=== PATIENT | male | born 1975 | race American Indian/Alaskan Native ===

== ENCOUNTER 2016-04-06 22:04 | Emergency (ER) | payer MEDICARE ==
--- NOTE | 2016-04-07 02:24 | Ultrasound Report ---
FINAL REPORT PROCEDURE: US TESTICULAR DOPPLER COMP TECHNIQUE: Real-time may-scale and color flow Doppler sonography in multiple planes of the scrotum, testicles, and epididymes was performed. Velocity spectral waveform analysis Doppler imaging of the arterial inflow and venous outflow of the testicles was performed with image documentation. CPT 46461 and 93647 HISTORY: testicular/scrotal pain COMPARISON: No prior studies are available for comparison. FINDINGS: RIGHT TESTICLE: Size: 4 x 2.1 x 2.9 cm . Appearance: Normal size and echotexture . Arterial blood flow: Normal spectral waveforms, flow velocities and color flow images.. Venous blood flow: Normal spectral waveforms and color flow images. Right epididymis: Normal size and echotexture . Hydrocele: None . LEFT TESTICLE Size: 3.5 x 1.5 x 2.8 cm . Appearance: Overall echotexture is heterogeneous. There is peripheral and internal blood flow. However there is an area in the inferior portion of the testicle measuring 1.5 centimeters in diameter which is hypoechoic and avascular. This could be a focal area of edema or scarring possibly due to trauma or old infarction. Possibility of tumor is considered less likely but cannot be entirely excluded.. Arterial blood flow: Normal spectral waveforms, flow velocities and color flow images.. Venous blood flow: Normal spectral waveforms and color flow images. Leftepididymis: Normal size and echotexture . Hydrocele: None . IMPRESSION: Normal right testicle and epididymis. In the left testicle there is an area in the inferior portion of the testicle measuring 1.5 centimeters in diameter which is hypoechoic and avascular. This could be a focal area of edema or scarring possibly due to trauma or old infarction. Possibility of tumor is considered less likely but cannot be entirely excluded..
--- NOTE | 2016-04-07 02:28 | Emergency Department Report ---
HPI - General Chief Complaint: Urogenital-Male Time Seen by Provider: 04/07/16 02:13 - HPI HPI: Patient is a 41-year-old male who presents to ED complaining of scrotal pain radiates down his upper thighs 1 year. Patient states he went to urologist about a year ago and got prescribed some medication he cannot recall. Patient states his last visit to the urologist was about 6 months ago where he got some other medication that he cannot recall. Patient admits some difficulty urinating, no pain or burning with urination. He denies frequency or urgency. He denies fevers/chills/nausea/vomiting/ abdominal pain/pelvic pain/chest pain/shortness of breath ED Past Medical Hx - Past Medical History Previous Medical History?: Yes Hx Psychiatric Treatment: Yes (depression) Additional medical history: chronic knee, back, ankle pain - Surgical History Past Surgical History?: Yes Additional Surgical History: left knee surgery - Social History Smoking Status: Current Some Day Smoker Substance Use Type: None - Medications Home Medications: Home Medications Medication Instructions Recorded Confirmed Last Taken Type HYDROcodone/APAP 7.5-325 [[place] 1 each PO Q6HR PRN #25 tablet 11/02/13 Unknown Rx 7.5/325 mg] Doxycycline [Vibramycin CAP] 100 mg PO Q12HR #14 capsule 04/07/16 Unknown Rx HYDROcodone/APAP 5-325 [[place] 1 each PO Q6HR PRN #12 tablet 04/07/16 Unknown Rx 5-325 mg TAB] Ibuprofen [Motrin 600 MG tab] 600 mg PO Q8H PRN #60 tablet 04/07/16 Unknown Rx ED Review of Systems ROS: Stated complaint: PELVIC AND BACK PAIN Other details as noted in HPI Constitutional: denies: chills, fever Eyes: denies: eye pain, eye discharge, vision change ENT: denies: ear pain, throat pain Respiratory: denies: cough, shortness of breath, wheezing Cardiovascular: denies: chest pain, palpitations Endocrine: no symptoms reported Gastrointestinal: denies: abdominal pain, nausea, diarrhea Genitourinary: testicular pain. denies: urgency, dysuria, frequency, hematuria , discharge, testicular mass Musculoskeletal: denies: back pain, joint swelling, arthralgia Skin: denies: rash, lesions Neurological: denies: headache, weakness, numbness, paresthesias, confusion Psychiatric: denies: anxiety, depression Hematological/Lymphatic: denies: easy bleeding, easy bruising Physical Exam - Physical Exam Vital Signs: Vital Signs 04/06/16 04/07/16 23:46 01:08 Temperature 98.6 F 98.6 F Pulse Rate 75 75 Respiratory 18 18 Rate Blood Pressure 135/82 Blood Pressure 135/82 [Left] O2 Sat by Pulse 98 98 Oximetry Physical Exam: GENERAL: Alert and oriented x3, no apparent distress, Normal Gait, atraumatic. HEAD: Head is normocephalic and a-traumatic. EYES: Extra ocular muscles are intact. Pupils are equal, round, and reactive to light and accommodation. NOSE: Nose symetrical, Nontender,Nares appeared normal. MOUTH:Mouth is well hydrated and without lesions. Patent airways. NECK: Supple. Non edematous, No carotid bruits. No lymphadenopathy or thyromegaly. LUNGS: Symetrical with respiration, No wheezing, no rales or crackles, CTAB. HEART: S1, S2 present, regular rate and rhythm without murmur, no rubs, no gallops. ABDOMEN: No organomegaly was noted,Positive bowel sounds, soft, and non- distended. . Nontender to palpation on all Quadrants, NO CVA tenderness. UROGENITAL: No scrotal mass, Scrotum non tender to palpation bilaterally, no hernia, no scars or penile discharge. no inguinal tenderness bilat EXTREMITIES/MUSCULOSKELETAL: No cyanosis, clubbing, rash, lesions or edema. Full ROM bilaterally. UE Pulses 2+ bilaterally. LE and UE 5+ strength bilaterally NEUROLOGIC: No focal Deficit, Cranial nerves II through XII are grossly intact. No loss of sensation, PSYCHIATRIC: Mood is congruent with affect, denies suicidal or homicidal ideations. SKIN: Warm and dry, No lesions, No ulceration or induration present. ED Course Vital Signs 04/06/16 04/07/16 23:46 01:08 Temperature 98.6 F 98.6 F Pulse Rate 75 75 Respiratory 18 18 Rate Blood Pressure 135/82 Blood Pressure 135/82 [Left] O2 Sat by Pulse 98 98 Oximetry ED Medical Decision Making - Medical Decision Making 36-year-old male presents with dysuria ED course: Patient received some pain medication. Urinalysis ordered. Patient was able to give a full cup of urine sample with no difficulty. Scrotum ultrasound ordered. Ultrasound: No hydrocele, normal venous flow and arterial blood flow Normal right testicle, left testicle has area of hypoechoic 1.5 cm Possibly due to scarring or old infarction or tumor. Patient to follow up with urologist. Urinalysis shows few mucus, negative bacteria, no signs of infection Discussed with patient ultrasound findings and to follow-up with urologist as referred. Discussed the patient's symptoms worsen to return to ED. Discussed normal exam. Vital signs stable. Patient is in no acute respiratory distress. Critical care attestation.: If time is entered above; I have spent that time in minutes in the direct care of this critically ill patient, excluding procedure time. ED Disposition Clinical Impression: Dysuria Disposition: DISCHARGED TO HOME OR SELFCARE Is pt being admited?: No Does the pt Need Aspirin: No Condition: Stable Instructions: Dysuria (ED) Additional Instructions: Follow-up with the urologist. Symptoms worsen return to ED Prescriptions: Doxycycline [Vibramycin CAP] 100 mg PO Q12HR #14 capsule HYDROcodone/APAP 5-325 [[place] 5-325 mg TAB] 1 each PO Q6HR PRN #12 tablet PRN Reason: Pain Ibuprofen [Motrin 600 MG tab] 600 mg PO Q8H PRN #60 tablet PRN Reason: Pain Referrals: PRIMARY CARE, [Primary Care Provider] - 3-5 Days LAKSHMI GARNETT MD [Staff Physician] - 3-5 Days DODIE MORIN MD [Staff Physician] - 3-5 Days ADRYAN MONTES MD [Referring] - 3-5 Days MYLA MADERA MD [Referring] - 3-5 Days Forms: Work/School Release Form(ED) Time of Disposition: 03:10
[2016-04-07 02:43] VITALS: BP 136/80
[2016-04-07 02:58] LABS: Bilirubin,Urine NEG (Negative); Blood,Urine NEG (Negative); Ketones,Urine NEG (Negative); Leukocyte Esterase,Urine NEG (Negative); Mucus,Urine FEW /HPF; Nitrite,Urine NEG (Negative); Protein,Urine <15 mg/dL mg/dL (Negative); Urobilinogen,Urine < 2.0 mg/dL (<2.0); WBC,Urine < 1.0 /HPF (0.0-6.0)
== END 2016-04-07 03:26 | disposition home or self-care (01) ==
LOC: ED 22:04
DX: R30.0 Dysuria (principal); N50.82 Scrotal pain; F17.200 Nicotine dependence, unspecified, uncomplicated; F32.9 Major depressive disorder, single episode, unspecified; G89.29 Other chronic pain; Z98.890 Other specified postprocedural states; Z79.899 Other long term (current) drug therapy; Z79.1 Long term (current) use of non-steroidal anti-inflammatories (NSAID); Z79.2 Long term (current) use of antibiotics
CPT/HCPCS: 81001; 87086; 93975

== ENCOUNTER 2017-01-08 05:38 | Emergency (ER) | payer MEDICARE | END 2017-01-08 06:36 | disposition left against medical advice (07) | LOC: ED 05:38 | DX: M79.1 Myalgia (principal); Z53.21 Procedure and treatment not carried out due to patient leaving prior to being seen by health care provider ==

== ENCOUNTER 2017-01-08 07:36 | Emergency (ER) | payer MEDICARE ==
[2017-01-08 07:50] VITALS: BP 121/83
[2017-01-08 08:16] LABS: Eosinophils % (Auto) 1.9 % (0.0-4.3); Hematocrit 43.2 % (35.5-45.6); Hemoglobin 14.5 gm/dl (11.8-15.2); Mean Corpuscular HGB Conc 34 % (32-34); Mean Corpuscular Hemoglobin 29 pg (28-32); Mean Corpuscular Volume 85 fl (84-94); Platelet Count 180 K/mm3 (140-440); Red Blood Count 5.07 M/mm3 (3.65-5.03); Red Cell Distribution Width 14.8 % (13.2-15.2); White Blood Count 8.1 K/mm3 (4.5-11.0)
[2017-01-08 10:03] LABS: Anion Gap 20 mmol/L; BUN/Creatinine Ratio 8; Blood Urea Nitrogen 8 mg/dL (9-20); Calcium 9.5 mg/dL (8.4-10.2); Carbon Dioxide 25 mmol/L (22-30); Chloride 100.1 mmol/L (98-107); Glucose 71 mg/dL (75-100); Potassium 4.4 mmol/L (3.6-5.0); Sodium 141 mmol/L (137-145)
== END 2017-01-08 13:30 | disposition left against medical advice (07) ==
LOC: ED 07:36
DX: R10.9 Unspecified abdominal pain (principal); R07.9 Chest pain, unspecified; Z53.21 Procedure and treatment not carried out due to patient leaving prior to being seen by health care provider
CPT/HCPCS: 36415; 80048; 84484; 85025; 93005; 93010

== ENCOUNTER 2017-04-08 03:02 | Emergency (ER) | payer MEDICARE ==
[2017-04-08 03:22] VITALS: BP 145/95
[2017-04-08] MEDS ORDERED: ASPIRIN PO ONE (03:22)
[2017-04-08] MEDS ORDERED: ASPIRIN ONE (03:22)
[2017-04-08 03:34] LABS: Basophils % (Auto) 0.4 % (0.0-1.8); Eosinophils # (Auto) 0.1 K/mm3 (0.0-0.4); Eosinophils % (Auto) 1.8 % (0.0-4.3); Hematocrit 40.5 % (35.5-45.6); Hemoglobin 13.7 gm/dl (11.8-15.2); Lymphocytes # (Auto) 2.1 K/mm3 (1.2-5.4); Lymphocytes % (Auto) 30.7 % (13.4-35.0); Mean Corpuscular HGB Conc 34 % (32-34); Mean Corpuscular Hemoglobin 28 pg (28-32); Mean Corpuscular Volume 84 fl (84-94); Monocytes # (Auto) 0.4 K/mm3 (0.0-0.8); Monocytes % (Auto) 5.3 % (0.0-7.3); Platelet Count 187 K/mm3 (140-440); Red Blood Count 4.83 M/mm3 (3.65-5.03)
[2017-04-08 03:54] LABS: BUN/Creatinine Ratio 8; Blood Urea Nitrogen 8 mg/dL (9-20); Calcium 9.1 mg/dL (8.4-10.2); Hemolysis Index 1
== END 2017-04-08 03:25 | disposition left against medical advice (07) ==
LOC: ED 03:02
DX: M54.9 Dorsalgia, unspecified (principal); M25.569 Pain in unspecified knee; R07.9 Chest pain, unspecified; Z53.21 Procedure and treatment not carried out due to patient leaving prior to being seen by health care provider
CPT/HCPCS: 36415; 80048; 84484; 85025; 93005; 93010

== ENCOUNTER 2017-04-28 17:25 | Emergency (ER) | payer MEDICARE ==
--- NOTE | 2017-04-28 18:27 | Emergency Department Report ---
ED Psych HPI - General Stated Complaint: MH EVAL Time Seen by Provider: 04/28/17 18:23 Source: patient, police - History of Present Illness Initial Comments: 42-year-old male with history of schizoaffective here with 1013 for auditory hallucinations telling himself to harm himself and others, denies other c/o, no cp no abd pain, no neck pain, no fever, no focal neuro c/o, -: Gradual, days(s) Associated Psychiatric Symptoms: suicidal ideation, homicidal ideation, auditory hallucinations Quality: changing over time, getting worse Associated Symptoms: denies: confusion, headache, shortness of breath, nausea, vomiting, syncope, insomnia - Related Data Previous Rx's Medication Instructions Recorded Last Taken Type HYDROcodone/APAP 7.5-325 [[place] 1 each PO Q6HR PRN #25 tablet 11/02/13 Unknown Rx 7.5/325 mg] Doxycycline [Vibramycin CAP] 100 mg PO Q12HR #14 capsule 04/07/16 Unknown Rx HYDROcodone/APAP 5-325 [[place] 1 each PO Q6HR PRN #12 tablet 04/07/16 Unknown Rx 5-325 mg TAB] Ibuprofen [Motrin 600 MG tab] 600 mg PO Q8H PRN #60 tablet 04/07/16 Unknown Rx Allergies Allergy/AdvReac Type Severity Reaction Status Date / Time No Known Allergies Allergy Verified 11/02/13 03:36 ED Review of Systems ROS: Stated complaint: MH EVAL Other details as noted in HPI Comment: All other systems reviewed and negative Constitutional: denies: chills, diaphoresis, fever, malaise, weakness Respiratory: denies: shortness of breath, SOB with exertion, SOB at rest, stridor Cardiovascular: denies: edema, syncope, paroxysmal nocturnal dyspnea Gastrointestinal: denies: diarrhea, constipation, hematemesis, melena Musculoskeletal: denies: joint swelling, arthralgia, myalgia Neurological: denies: weakness, numbness, paresthesias, confusion, abnormal gait Psychiatric: auditory hallucinations, homicidal thoughts, suicidal thoughts ED Past Medical Hx - Past Medical History Hx Hypertension: Yes Hx Arthritis: Yes Hx Psychiatric Treatment: Yes (depression) Additional medical history: chronic knee, back, ankle pain - Surgical History Additional Surgical History: left knee surgery - Social History Smoking Status: Light Tobacco Smoker Substance Use Type: Alcohol - Medications Home Medications: Home Medications Medication Instructions Recorded Confirmed Last Taken Type HYDROcodone/APAP 7.5-325 [[place] 1 each PO Q6HR PRN #25 tablet 11/02/13 Unknown Rx 7.5/325 mg] Doxycycline [Vibramycin CAP] 100 mg PO Q12HR #14 capsule 04/07/16 Unknown Rx HYDROcodone/APAP 5-325 [[place] 1 each PO Q6HR PRN #12 tablet 04/07/16 Unknown Rx 5-325 mg TAB] Ibuprofen [Motrin 600 MG tab] 600 mg PO Q8H PRN #60 tablet 04/07/16 Unknown Rx ED Physical Exam - General General appearance: alert, in no apparent distress - Head Head exam: Present: atraumatic, normocephalic - Eye Eye exam: Present: PERRL, EOMI - ENT ENT exam: Present: normal exam, normal orophraynx - Neck Neck exam: Present: normal inspection. Absent: tenderness, meningismus - Respiratory Respiratory exam: Present: normal lung sounds bilaterally. Absent: respiratory distress, wheezes, rales, rhonchi, stridor, chest wall tenderness, accessory muscle use, decreased breath sounds, prolonged expiratory - Cardiovascular Cardiovascular Exam: Present: regular rate, normal heart sounds - GI/Abdominal GI/Abdominal exam: Present: soft. Absent: distended, tenderness, guarding, rebound, mass, bruit, pulsatile mass - Extremities Exam Extremities exam: Present: normal inspection, normal capillary refill. Absent: pedal edema, joint swelling, calf tenderness - Back Exam Back exam: Present: normal inspection. Absent: CVA tenderness (R), CVA tenderness (L), muscle spasm, paraspinal tenderness, vertebral tenderness - Neurological Exam Neurological exam: Present: alert, oriented X3, CN II-XII intact. Absent: motor sensory deficit - Psychiatric Psychiatric exam: Present: depressed, anxious, homicidal ideation, suicidal ideation - Skin Skin exam: Absent: cyanosis, diaphoretic, erythema, urticaria, vesicles, petechiae, pallor, abrasion, ecchymosis ED Course Vital Signs 04/28/17 04/28/17 17:45 18:29 Temperature 98.7 F 98.7 F Pulse Rate 64 64 Respiratory 18 18 Rate Blood Pressure 112/69 Blood Pressure 112/69 112/69 [Left] O2 Sat by Pulse 94 94 Oximetry ED Medical Decision Making - Lab Data Result diagrams: 04/28/17 18:40 04/28/17 18:40 - Medical Decision Making Patient was evaluated by psych he was worse on 1013 he will need further evaluation for his auditory hallucinations he was medically cleared and stable for psych admit Critical care attestation.: If time is entered above; I have spent that time in minutes in the direct care of this critically ill patient, excluding procedure time. ED Disposition Clinical Impression: Psychosis Disposition: [id number]/TX-65 PSY HOSP/PSY UNIT Is pt being admited?: No Condition: Stable Time of Disposition: 00:19
[2017-04-28 18:54] LABS: Basophils % (Auto) 0.6 % (0.0-1.8); Eosinophils # (Auto) 0.1 K/mm3 (0.0-0.4); Eosinophils % (Auto) 2.1 % (0.0-4.3); Hematocrit 42.4 % (35.5-45.6); Hemoglobin 13.9 gm/dl (11.8-15.2); Lymphocytes # (Auto) 1.8 K/mm3 (1.2-5.4); Lymphocytes % (Auto) 37.9 % (13.4-35.0); Mean Corpuscular HGB Conc 33 % (32-34); Mean Corpuscular Hemoglobin 28 pg (28-32); Mean Corpuscular Volume 85 fl (84-94); Monocytes # (Auto) 0.5 K/mm3 (0.0-0.8); Monocytes % (Auto) 9.9 % (0.0-7.3); Platelet Count 186 K/mm3 (140-440); Red Blood Count 4.96 M/mm3 (3.65-5.03); Red Cell Distribution Width 14.8 % (13.2-15.2)
[2017-04-28 19:08] LABS: Alanine Aminotransferase 22 units/L (7-56); Albumin 4.5 g/dL (3.9-5); BUN/Creatinine Ratio 11; Blood Urea Nitrogen 10 mg/dL (9-20); Calcium 9.1 mg/dL (8.4-10.2); Hemolysis Index 15
[2017-04-29 05:07] LABS: Bilirubin,Urine NEG (Negative); Blood,Urine NEG (Negative); Color,Urine Red (Yellow); Protein,Urine <15 mg/dL mg/dL (Negative); Urobilinogen,Urine < 2.0 mg/dL (<2.0)
[2017-04-29 05:16] LABS: Amphetamine Screen,Urine PRESUMPTIVE NEGATIVE; Benzodiazepines Screen,Urine PRESUMPTIVE NEGATIVE; Cocaine Screen,Urine PRESUMPTIVE NEGATIVE; Methadone Screen,Urine PRESUMPTIVE NEGATIVE; Opiate Screen,Urine PRESUMPTIVE NEGATIVE
[2017-04-29 05:27] LABS: WBC,Urine < 1.0 /HPF (0.0-6.0)
[2017-04-29 05:41] LABS: Cannabinoid Screen,Urine PRESUMPTIVE POSITIVE
--- NOTE | 2017-04-29 23:48 | Consultation ---
History of Present Illness - Reason for Consult Consult date: 04/29/17 Reason for consult: Psychiatric Initial Evaluation - Chief Complaint Chief complaint: " I'm not in the mood for this shit." - History of Present Psychiatric Illness Yordy is a 42 year old AAM who presents to [facility] for auditory hallucinations telling himself to harm himself and others. Patient has a PPHx of Schizoaffective. He reports that his current medication is Invega Sustenna and Seroquel. He states symptoms are partially controlled with current drug regimen. His next Invega Sustenna is due on 05-02-17. He was placed on a 1013 for psychosis after he attended his outpatient appointment at the [facility]. Patient expresses that he does not know why he is here. Today, patient presents irritable and paranoid. Patient is very agitated and verbally aggressive. He denies SI/HI. Allergies: NKDA Past Psychiatric History: Schizoaffective Disorder (2012); Several inpatient hospitalizations; Outpatient Services- [facility]; Unable to asses for suicidal attempts History of Trauma/Abuse: Patient denies Social History: High School Diploma; Disability-income; Single; No children; Good support [facility]; Endorses financial difficulties Family History: " Everybody is my family has substance abuse or psychiatric issues." Medications and Allergies Allergies Allergy/AdvReac Type Severity Reaction Status Date / Time No Known Allergies Allergy Verified 11/02/13 03:36 Home Medications Medication Instructions Recorded Confirmed Last Taken Type HYDROcodone/APAP 7.5-325 [[place] 1 each PO Q6HR PRN #25 tablet 11/02/13 Unknown Rx 7.5/325 mg] Doxycycline [Vibramycin CAP] 100 mg PO Q12HR #14 capsule 04/07/16 Unknown Rx HYDROcodone/APAP 5-325 [[place] 1 each PO Q6HR PRN #12 tablet 04/07/16 Unknown Rx 5-325 mg TAB] Ibuprofen [Motrin 600 MG tab] 600 mg PO Q8H PRN #60 tablet 04/07/16 Unknown Rx Mental Status Exam - Vital signs Last Vital Signs Temp 98.7 F 04/29/17 10:42 Pulse 67 04/29/17 10:42 Resp 18 04/29/17 10:42 BP 134/95 04/29/17 10:42 Pulse Ox 100 04/29/17 10:42 - Exam Narrative exam: Mental Status Exam General Appearance: Hospital gown but poorly groomed Attitude/Behavior: Defensive, uncooperative Sensorium: Distracted Orientation: Alert and oriented x 2 ( person and place) Mood: Agitated/ Easily irritable, labile Affect: Inappropriate, incongruent with mood Speech/Language: Loud Thought Processes: Disorganized Thought Content: Paranoid Perception: + Auditory Hallucinations; internally preoccupied Concentration/attention: Impaired Memory: Impaired Suicidal Ideation/Plan: Patient denies Homicidal Ideation/Plan: + HI no plan Results Result Diagrams: 04/28/17 18:40 04/28/17 18:40 All other labs normal. Assessment and Plan Assessment and plan: Impression: Patient has a PPHx of Schizoaffective Disorder. Today patient presents agitated during the assessment. Auditory hallucinations, homicidal ideations, and paranoid thoughts are all evident during the assessment Patient denies SI and VH. DDx: Schizoaffective Disorder, Bipolar Type Recommendation/Plan: 1. Continue 1013. 2. Restart Seroquel 200mg po QHS mood/psychosis 3. Assist with inpatient psychiatric services.
[2017-04-30] MEDS ORDERED: GEODON IM PRN ×2 (03:44→03:55)
[2017-04-30] MEDS ORDERED: NORVASC PO ONE (10:00)
[2017-04-30 10:16] VITALS: BP 142/110
--- NOTE | 2017-04-30 12:06 | Progress Note ---
Subjective - Reason for Consult Consult date: 04/30/17 Reason for consult: Psychiatry Follow-up - Chief Complaint Chief complaint: "The voices come and go" 42 year old AAM who presents to [facility] for auditory hallucinations telling himself to harm himself and others. Today the patient is cooperative during the assessment. He stated that voices come and go. He could not state what the voices are saying to him when asked. The patient is tangent, hyper verbal, and had to be redirected several times during the interview. He denies SI/HI's and VH's. He denies any side effects of his medication. Mental Status Exam - Vital signs Last Vital Signs Temp 98.4 F 04/30/17 10:13 Pulse 84 04/30/17 10:13 Resp 18 04/30/17 10:13 BP 142/110 04/30/17 10:13 Pulse Ox 99 04/30/17 10:13 - Exam Narrative exam: MSE: Appearance: cooperative Behavior: regular eye contact Speech: hyper verbal Mood: "okay" Affect: congruent to mood Thought Process: tangential Thought Content: denies SI/HI's and VH's, AH's intermittently, disorganized Motor Activity: ambulatory Cognition: A/O x3 Insight: poor Judgment: poor Assessment and Plan Impression: Hx of Schizoaffective Disorder. Today the patient is cooperative during the assessment. DDx: R/O Bipolar DO R/O Schizophrenia Recommendation/Plan: Continue 1013 with placement to [place] today, pending transport time. Continue Seroquel 200 mg PO HS mood/psychosis. Discussed possible metabolic side effects of Seroquel with patient.
== END 2017-04-30 10:13 ==
LOC: ED 17:25
DX: F25.9 Schizoaffective disorder, unspecified (principal); I10 Essential (primary) hypertension; M19.90 Unspecified osteoarthritis, unspecified site; F32.9 Major depressive disorder, single episode, unspecified; G89.29 Other chronic pain; F17.200 Nicotine dependence, unspecified, uncomplicated; Z79.899 Other long term (current) drug therapy
CPT/HCPCS: 36415; 80053; 80307; 81001; 85025; 96372; 99285; G0480; J3486; 80320

== ENCOUNTER 2017-07-09 22:41 | Emergency (ER) | payer MEDICARE ==
[2017-07-10 00:49] LABS: Hematocrit 42.9 % (35.5-45.6); Mean Corpuscular HGB Conc 33 % (32-34); Mean Corpuscular Hemoglobin 28 pg (28-32); Mean Corpuscular Volume 84 fl (84-94); Platelet Count 194 K/mm3 (140-440); Red Blood Count 5.08 M/mm3 (3.65-5.03); Red Cell Distribution Width 14.1 % (13.2-15.2)
[2017-07-10 01:10] LABS: Alanine Aminotransferase 22 units/L (7-56); Albumin 4.7 g/dL (3.9-5); BUN/Creatinine Ratio 11; Blood Urea Nitrogen 12 mg/dL (9-20); Calcium 9.3 mg/dL (8.4-10.2); Hemolysis Index 9
[2017-07-10 02:51] LABS: Bilirubin,Urine NEG (Negative); Blood,Urine NEG (Negative); Color,Urine Straw (Yellow); Protein,Urine <15 mg/dL mg/dL (Negative); Urobilinogen,Urine < 2.0 mg/dL (<2.0)
[2017-07-10 02:56] LABS: WBC,Urine < 1.0 /HPF (0.0-6.0)
--- NOTE | 2017-07-10 03:14 | Emergency Department Report ---
HPI - General Chief Complaint: Abdominal Pain Time Seen by Provider: 07/10/17 02:45 - HPI HPI: 42-year-old male presents to the emergency department with complaint of bilateral ear pain and he says that he is in need of some Propecia for a urinary tract infection. He says that he has been having increased urination and that the urine has been dark. The patient says that he does have a primary care physician but cannot currently remember their name. He has a history of arthritis, hypertension. He denies any fever, back pain, nausea, vomiting, diarrhea. There is a listing of abdominal pain on the chart to triage, but I asked the patient about this he denies any current abdominal discomfort. No recent travel or sick contacts at home. ED Past Medical Hx - Past Medical History Previous Medical History?: Yes Hx Hypertension: Yes Hx Arthritis: Yes Hx Psychiatric Treatment: Yes (depression) Additional medical history: chronic knee, back, ankle pain - Surgical History Past Surgical History?: Yes Additional Surgical History: left knee surgery, "late " - Social History Smoking Status: Light Tobacco Smoker Substance Use Type: Alcohol - Medications Home Medications: Home Medications Medication Instructions Recorded Confirmed Last Taken Type HYDROcodone/APAP 7.5-325 [[place] 1 each PO Q6HR PRN #25 tablet 11/02/13 04/30/17 Unknown Rx 7.5/325 mg] Doxycycline [Vibramycin CAP] 100 mg PO Q12HR #14 capsule 04/07/16 04/30/17 Unknown Rx HYDROcodone/APAP 5-325 [[place] 1 each PO Q6HR PRN #12 tablet 04/07/16 04/30/17 Unknown Rx 5-325 mg TAB] Ibuprofen [Motrin 600 MG tab] 600 mg PO Q8H PRN #60 tablet 04/07/16 04/30/17 Unknown Rx amLODIPine [Norvasc] 5 mg PO DAILY #30 tab 04/30/17 Unknown Rx ED Review of Systems ROS: Stated complaint: EAR PAIN, ABD PAIN Other details as noted in HPI Comment: All other systems reviewed and negative Constitutional: denies: chills, fever Eyes: denies: eye pain, eye discharge, vision change ENT: ear pain. denies: throat pain Respiratory: denies: cough, shortness of breath, wheezing Cardiovascular: denies: chest pain, palpitations Gastrointestinal: denies: nausea Genitourinary: dysuria, frequency Musculoskeletal: denies: back pain, joint swelling, arthralgia Skin: denies: rash, lesions Neurological: denies: headache, weakness, paresthesias Physical Exam - Physical Exam Vital Signs: Vital Signs 07/09/17 07/10/17 23:27 03:00 Temperature 99 F 98.8 F Pulse Rate 91 H 76 Respiratory 18 16 Rate Blood Pressure 116/86 Blood Pressure 120/68 [Left] O2 Sat by Pulse 99 100 Oximetry Physical Exam: GENERAL: The patient is well-developed well-nourished. HENT: Normocephalic. Atraumatic. Patient has moist mucous membranes. Oropharynx is clear. Normal-appearing bilateral ear canals and tympanic membranes. EYES: Extraocular motions are intact. Pupils equal reactive to light bilaterally. NECK: Supple. Trachea is midline. CHEST/LUNGS: Clear to auscultation. There is no respiratory distress noted. HEART/CARDIOVASCULAR: Regular. There is no tachycardia. There is no murmur. ABDOMEN: Abdomen is soft, nontender. Patient has normal bowel sounds. There is no abdominal distention. SKIN: Skin is warm and dry. NEURO: The patient is awake, alert, and oriented. The patient is cooperative. The patient has no focal neurologic deficits. The patient has normal speech and gait. MUSCULOSKELETAL: There is no tenderness or deformity. There is no limitation range of motion. There is no evidence of acute injury. ED Course Vital Signs 07/09/17 07/10/17 23:27 03:00 Temperature 99 F 98.8 F Pulse Rate 91 H 76 Respiratory 18 16 Rate Blood Pressure 116/86 Blood Pressure 120/68 [Left] O2 Sat by Pulse 99 100 Oximetry ED Medical Decision Making - Lab Data Result diagrams: 07/10/17 00:17 07/10/17 00:17 - Medical Decision Making Patient presented with complaint of bilateral ear pain and asking for medication to treat some type of recurrent urinary tract infection. However the medication he was asking for is usually used for male pattern baldness and BPH. His urinalysis does not show any urinary tract infection. The rest of his blood work is unremarkable as well. His vital signs are stable throughout his ED course. He'll be discharged home to follow-up with a primary care physician and encouraged to return to the emergency Department with any worsening of symptoms or any acute distress. - Differential Diagnosis otitis media, otitis externa, upper respiratory infection, UTI Critical Care Time: No Critical care attestation.: If time is entered above; I have spent that time in minutes in the direct care of this critically ill patient, excluding procedure time. ED Disposition Clinical Impression: Otalgia of both ears, Dysuria Disposition: TO HOME OR SELFCARE Is pt being admited?: No Condition: Stable Instructions: Earache (ED), Dysuria (ED) Additional Instructions: Please follow up with a primary care physician in the next few days. Return to the emergency Department with any worsening of your symptoms or any acute distress. Referrals: NIKO ZACARIAS MD [Primary Care Provider] - 3-5 Days CLAUDIA PARRA MD [Staff Physician] - 3-5 Days [facility] [Outside] - 3-5 Days [facility] [Outside] - 3-5 Days Time of Disposition: 03:15
[2017-07-10 03:32] VITALS: BP 120/68
[2017-07-10 05:40] LABS: Total Cells Counted 100
[2017-07-10 05:41] LABS: Anisocytosis 1+; Band Neutrophils # (Manual) 0.2 K/mm3; Basophils % (Manual) 0 % (0.0-1.8); Eosinophils % (Manual) 0 % (0.0-4.3)
== END 2017-07-10 03:36 | disposition home or self-care (01) ==
LOC: ED 22:41
DX: H92.03 Otalgia, bilateral (principal); R30.0 Dysuria; I10 Essential (primary) hypertension; M19.90 Unspecified osteoarthritis, unspecified site; F32.9 Major depressive disorder, single episode, unspecified; G89.29 Other chronic pain; F17.200 Nicotine dependence, unspecified, uncomplicated
CPT/HCPCS: 36415; 80053; 81001; 85007; 85025; 99283

== ENCOUNTER 2017-08-07 20:38 | Emergency (ER) | payer MEDICARE ==
[2017-08-07 21:03] VITALS: BP 100/71
== END 2017-08-08 02:00 | disposition left against medical advice (07) ==
LOC: ED 20:38
DX: M79.605 Pain in left leg (principal); Z53.21 Procedure and treatment not carried out due to patient leaving prior to being seen by health care provider

== ENCOUNTER 2018-09-08 23:10 | Observation (INO) | payer MEDICARE ==
[2018-09-08] MEDS ORDERED: ASPIRIN PO ONE (23:40)
[2018-09-08 23:52] LABS: Basophils % (Auto) 0.7 % (0.0-1.8); Eosinophils # (Auto) 0.1 K/mm3 (0.0-0.4); Eosinophils % (Auto) 2.1 % (0.0-4.3); Hemoglobin 13.4 gm/dl (11.8-15.2); Lymphocytes % (Auto) 35.3 % (13.4-35.0); Mean Corpuscular HGB Conc 34 % (32-34); Mean Corpuscular Volume 84 fl (84-94); Monocytes # (Auto) 0.5 K/mm3 (0.0-0.8); Monocytes % (Auto) 8.2 % (0.0-7.3); Platelet Count 190 K/mm3 (140-440); Red Blood Count 4.66 M/mm3 (3.65-5.03); Red Cell Distribution Width 16.6 % (13.2-15.2)
[2018-09-09 00:13] LABS: BUN/Creatinine Ratio 7; Blood Urea Nitrogen 8 mg/dL (9-20); Calcium 9.2 mg/dL (8.4-10.2); Hemolysis Index 8
--- NOTE | 2018-09-09 00:27 | XRay Report ---
CHEST 1 VIEW INDICATION / CLINICAL INFORMATION: Chest Pain. COMPARISON: None available. FINDINGS: SUPPORT DEVICES: None. HEART / MEDIASTINUM: No significant abnormality. LUNGS / PLEURA: No significant pulmonary or pleural abnormality. No pneumothorax. ADDITIONAL FINDINGS: No significant additional findings. IMPRESSION: No acute pulmonary or pleural abnormality. Signer Name: Parmjit Graham MD FACR Signed: 09/09/2018 12:23 AM Workstation Name: [id number]
--- NOTE | 2018-09-09 00:28 | Emergency Department Report ---
ED Chest Pain HPI - General Chief Complaint: Chest Pain Stated Complaint: CHEST PAIN W/MIGRAINE AND BACK PAIN Time Seen by Provider: 09/09/18 00:22 Source: patient Mode of arrival: Ambulatory Limitations: No Limitations - History of Present Illness Initial Comments: Patient is a 43-year-old male that presents emergency with complaints of chest pain shortness of breath on and off for 2 weeks. Patient states over the past 3 days the symptoms have becoming more frequent and worse. Patient states the pain is a 9 out of 10. Patient states the pain is better with rest and worse with exertion. Patient states he smokes and he had a minor heart attack 2 years ago diagnosed by a medical physics professor. Patient states he has elevated blood pressure with a blood pressure medications which controls his blood pressure. MD Complaint: chest pain -: Sudden Onset: during rest Pain Location: substernal, left chest Pain Radiation: none Severity: severe Severity scale (0 -10): 9 Quality: sharp Consistency: intermittent Improves With: rest Worsens With: exertion re: dyspnea. denies: nausea, vomting, diaphoresis, sense of impending doom Other Symptoms: denies: cough, fever, syncope, rash, acid taste in mouth, leg swelling, palpitations, burping Treatments Prior to Arrival: none Aspirin use within the Past 7 Days: (0) No - Related Data On Oral Contraceptives: No Previous Rx's Medication Instructions Recorded Last Taken Type HYDROcodone/APAP 7.5-325 [[place] 1 each PO Q6HR PRN #25 tablet 11/02/13 Unknown Rx 7.5/325 mg] DOXYCYCLINE Hyclate [Vibramycin 100 mg PO Q12HR #14 capsule 04/07/16 Unknown Rx CAP] HYDROcodone/APAP 5-325 [[place] 1 each PO Q6HR PRN #12 tablet 04/07/16 Unknown Rx 5-325 mg TAB] Ibuprofen [Motrin 600 MG tab] 600 mg PO Q8H PRN #60 tablet 04/07/16 Unknown Rx amLODIPine [Norvasc] 5 mg PO DAILY #30 tab 04/30/17 Unknown Rx Allergies Allergy/AdvReac Type Severity Reaction Status Date / Time No Known Allergies Allergy Verified 08/07/17 20:56 Heart Score - HEART Score History: Moderately suspicious EKG: Non-specific Age: < 45 Risk factors: > 3 risk factors or hx of atherosclerotic disease Troponin: < normal limit HEART Score: 4 ED Review of Systems ROS: Stated complaint: CHEST PAIN W/MIGRAINE AND BACK PAIN Other details as noted in HPI Constitutional: denies: chills, fever Eyes: denies: eye pain, eye discharge, vision change ENT: denies: ear pain, throat pain Respiratory: shortness of breath. denies: cough, wheezing Cardiovascular: chest pain. denies: palpitations Endocrine: no symptoms reported Gastrointestinal: denies: abdominal pain, nausea, diarrhea Genitourinary: denies: urgency, dysuria Musculoskeletal: denies: back pain, joint swelling, arthralgia Skin: denies: rash, lesions Neurological: denies: headache, weakness, paresthesias Psychiatric: denies: anxiety, depression Hematological/Lymphatic: denies: easy bleeding, easy bruising ED Past Medical Hx - Past Medical History Previous Medical History?: Yes Hx Hypertension: Yes Hx Heart Attack/AMI: Yes (3 yrs ago) Hx Arthritis: Yes Hx Psychiatric Treatment: Yes (depression) Additional medical history: chronic knee, back, ankle pain - Surgical History Past Surgical History?: Yes Additional Surgical History: left knee surgery, "late 90s" - Family History Family history: no significant - Social History Smoking Status: Current Every Day Smoker Substance Use Type: None - Medications Home Medications: Home Medications Medication Instructions Recorded Confirmed Last Taken Type HYDROcodone/APAP 7.5-325 [[place] 1 each PO Q6HR PRN #25 tablet 11/02/13 04/30/17 Unknown Rx 7.5/325 mg] DOXYCYCLINE Hyclate [Vibramycin 100 mg PO Q12HR #14 capsule 04/07/16 04/30/17 Unknown Rx CAP] HYDROcodone/APAP 5-325 [[place] 1 each PO Q6HR PRN #12 tablet 04/07/16 04/30/17 Unknown Rx 5-325 mg TAB] Ibuprofen [Motrin 600 MG tab] 600 mg PO Q8H PRN #60 tablet 04/07/16 04/30/17 Unknown Rx amLODIPine [Norvasc] 5 mg PO DAILY #30 tab 04/30/17 Unknown Rx ED Physical Exam - General Limitations: No Limitations General appearance: alert, in no apparent distress - Head Head exam: Present: atraumatic, normocephalic - Eye Eye exam: Present: normal appearance - ENT ENT exam: Present: mucous membranes moist - Neck Neck exam: Present: normal inspection - Respiratory Respiratory exam: Present: normal lung sounds bilaterally. Absent: respiratory distress, wheezes, rales, rhonchi, chest wall tenderness - Cardiovascular Cardiovascular Exam: Present: regular rate, normal rhythm. Absent: systolic murmur, diastolic murmur, rubs, gallop - GI/Abdominal GI/Abdominal exam: Present: soft, normal bowel sounds. Absent: distended, tenderness, guarding - Rectal Rectal exam: Present: deferred - Extremities Exam Extremities exam: Present: normal inspection - Back Exam Back exam: Present: normal inspection - Neurological Exam Neurological exam: Present: alert, oriented X3 - Psychiatric Psychiatric exam: Present: normal affect, normal mood - Skin Skin exam: Present: warm, dry, intact, normal color. Absent: rash ED Course Vital Signs 09/08/18 23:37 Temperature 99.4 F Pulse Rate 87 Respiratory 18 Rate Blood Pressure 120/82 O2 Sat by Pulse 96 Oximetry - Reevaluation(s) Reevaluation #1: I discussed all results with patient. I discussed plan of care with patient. Patient agrees with plan of care. Patient will be admitted to the hospitalist service. 09/09/18 01:15 - Consultations Consultation #1: Hospitalist consult for admission. Hospitalist to admit patient and assume care of patient. 09/09/18 01:18 BENITEZ score - Benitez Score Age > 65: (0) No Aspirin use within the Past 7 Days: (0) No 3 or more CAD Risk Factors: (1) Yes 2 or more Angina events in past 24 hrs: (1) Yes Known CAD with more than 50% Stenosis: (0) No Elevated Cardiac Markers: (0) No ST Deviation Greater than 0.5mm: (0) No BENITEZ Score: 2 ED Medical Decision Making - Lab Data Result diagrams: 09/08/18 23:41 09/08/18 23:43 - EKG Data -: EKG Interpreted by Ct EKG shows normal: sinus rhythm, axis, intervals, QRS complexes (except for incomplete right bundle-branch block), ST-T waves Rate: normal - Radiology Data Radiology results: report reviewed CHEST 1 VIEW INDICATION / CLINICAL INFORMATION: Chest Pain. COMPARISON: None available. FINDINGS: SUPPORT DEVICES: None. HEART / MEDIASTINUM: No significant abnormality. LUNGS / PLEURA: No significant pulmonary or pleural abnormality. No pneumothorax. ADDITIONAL FINDINGS: No significant additional findings. IMPRESSION: No acute pulmonary or pleural abnormality. - Medical Decision Making Patient is a 43-year-old male presents to emergency room with complaints of chest pain and shortness of breath. States he has a history of CAD and PR and is a smoker. The patient's risk factors and heart score are greater than 2. Souleymane rivera was admitted to the hospitalist service.. EKG reviewed and within normal limits. Patient's chest x-ray negative. Patient's labs unremarkable. - Differential Diagnosis chest pain. ACS. Shortness of breath. Critical Care Time: Yes Critical care attestation.: If time is entered above; I have spent that time in minutes in the direct care of this critically ill patient, excluding procedure time. Critical Care Time: 35 minutes ED Disposition Clinical Impression: SOB (shortness of breath) Chest pain Qualifiers: Chest pain type: unspecified Qualified Code(s): R07.9 - Chest pain, unspecified CAD (coronary artery disease) Qualifiers: Coronary Disease-Associated Artery/Lesion type: [place] artery [place] vs. transplanted heart: al[place]iiq heart Associated angina: angina presence unspecified Qualified Code(s): I25.10 - Atherosclerotic heart disease of [place]q coronary artery without angina pectoris Disposition: -09 OP ADMIT IP TO THIS HOSP Is pt being admited?: Yes Does the pt Need Aspirin: No Condition: Critical Time of Disposition: 01:20
[2018-09-09] MEDS ORDERED: SODIUM CHLORIDE FLUSH SYRINGE 10 ML IV PRN ×2 (01:35→01:40)
[2018-09-09] MEDS ORDERED: NITROSTAT SL PRN (01:35)
[2018-09-09] MEDS ORDERED: PROVENTIL IH PRN (01:40)
[2018-09-09] MEDS ORDERED: ZOFRAN IV PRN (01:40)
[2018-09-09] MEDS ORDERED: MORPHINE IV PRN (01:40)
[2018-09-09] MEDS ORDERED: TYLENOL PO PRN (01:40)
[2018-09-09] MEDS ORDERED: DILAUDID IV PRN (01:41)
[2018-09-09] MEDS ORDERED: ASPIRIN ONE (01:41)
[2018-09-09] MEDS ORDERED: APRESOLINE IV PRN (01:43)
--- NOTE | 2018-09-09 01:51 | History and Physical Report ---
History of Present Illness Date of examination: 09/09/18 Date of admission: 09/09/2018 Chief complaint: Chest pain History of present illness: 43-year-old -Italian male who was an ongoing smoker with history of coronary artery disease, KS (2 yrs ago), hypertension, arthritis, depression, schizoaffective disorder, and history of marijuana abuse who presents to [facility] ED with complaints of intermittent left-sided substernal chest pain with radiation to left upper extremity and neck, and shortness of breath the past 2 weeks. He states that over the past day his chest pain and shortness of breath episodes have become more frequent. He describes his pain as sharp and rates it 9/10. His chest pain and dyspnea is improved with rest. Patient also complains of cough with occasional clear sputum production. Patient states that he had a fever approximately 2 weeks ago and is just getting back to normal state of health. Denies: Fever, hemoptysis, nausea, vomiting, diarrhea, diaphoresis, or recent hospitalization Past History Past Medical History: acute KS (2 years ago), arthritis, CAD, hypertension, other (depression, schizoaffective disorder, several inpatient psychiatric hospitalizations) Past Surgical History: Other (left knee surgery (s)) Social history: Lives alone, smoking (current everyday smoker, smokes 3-4 cigarettes per day) Family history: no significant family history Medications and Allergies Allergies Allergy/AdvReac Type Severity Reaction Status Date / Time No Known Allergies Allergy Verified 08/07/17 20:56 Home Medications Medication Instructions Recorded Confirmed Last Taken Type HYDROcodone/APAP 7.5-325 [[place] 1 each PO Q6HR PRN #25 tablet 11/02/13 04/30/17 Unknown Rx 7.5/325 mg] DOXYCYCLINE Hyclate [Vibramycin 100 mg PO Q12HR #14 capsule 04/07/16 04/30/17 Unknown Rx CAP] HYDROcodone/APAP 5-325 [[place] 1 each PO Q6HR PRN #12 tablet 04/07/16 04/30/17 Unknown Rx 5-325 mg TAB] Ibuprofen [Motrin 600 MG tab] 600 mg PO Q8H PRN #60 tablet 04/07/16 04/30/17 Unknown Rx amLODIPine [Norvasc] 5 mg PO DAILY #30 tab 04/30/17 Unknown Rx Review of Systems All systems: negative (reviewed and no additional remarkable complaints except as noted below) Cardiovascular: chest pain, shortness of breath, dyspnea on exertion Respiratory: cough with sputum (clear sputum production), shortness of breath, dyspnea on exertion Exam - Physical Exam Narrative exam: Physical exam General appearance: Present: No acute distress, alert and oriented 3, well- developed, -Italian male - EENT Eyes: Present: PERRL, EOM intact ENT: hearing intact, poor dentition - Neck Neck: Present: supple, normal ROM - Respiratory Respiratory effort: Non-labored Respiratory: CTA bilaterally - Cardiovascular Heart rate: 80 (bpm) Rhythm: SR Heart Sounds: Present: S1 & S2. Absent: rub, click - Extremities Extremities: no ischemia, pulses intact, - Peripheral Assessment Peripheral Pulses: within normal limits - Abdominal General gastrointestinal: soft, non-tender, normal bowel sounds - Integumentary Integumentary: Present: warm, dry - Musculoskeletal Musculoskeletal: Minimal lower extremities -Neurological Neurological: CN II-XII grossly intact - Psychiatric Psychiatric: cooperative - Constitutional Vitals: Temp Pulse Resp BP Pulse Ox 99.4 F 87 18 120/82 96 09/08/18 23:37 09/08/18 23:37 09/08/18 23:37 09/08/18 23:37 09/08/18 23:37 Results - Labs CBC & Chem 7: 09/08/18 23:41 09/08/18 23:43 Labs: Laboratory Last Values WBC 5.7 K/mm3 (4.5-11.0) 09/08/18 23:41 RBC 4.66 M/mm3 (3.65-5.03) 09/08/18 23:41 Hgb 13.4 gm/dl (11.8-15.2) 09/08/18 23:41 Hct 39.0 % (35.5-45.6) 09/08/18 23:41 MCV 84 fl (84-94) 09/08/18 23:41 MCH 29 pg (28-32) 09/08/18 23:41 MCHC 34 % (32-34) 09/08/18 23:41 RDW 16.6 % (13.2-15.2) H 09/08/18 23:41 Plt Count 190 K/mm3 (140-440) 09/08/18 23:41 Lymph % (Auto) 35.3 % (13.4-35.0) H 09/08/18 23:41 [place] % (Auto) 8.2 % (0.0-7.3) H 09/08/18 23:41 Eos % (Auto) 2.1 % (0.0-4.3) 09/08/18 23:41 Baso % (Auto) 0.7 % (0.0-1.8) 09/08/18 23:41 Lymph # 2.0 K/mm3 (1.2-5.4) 09/08/18 23:41 [place] # 0.5 K/mm3 (0.0-0.8) 09/08/18 23:41 Eos # 0.1 K/mm3 (0.0-0.4) 09/08/18 23:41 Baso # 0.0 K/mm3 (0.0-0.1) 09/08/18 23:41 Seg Neutrophils % 53.7 % (40.0-70.0) 09/08/18 23:41 Seg Neutrophils # 3.1 K/mm3 (1.8-7.7) 09/08/18 23:41 Sodium 142 mmol/L (137-145) 09/08/18 23:43 Potassium 3.9 mmol/L (3.6-5.0) 09/08/18 23:43 Chloride 104.1 mmol/L (98-107) 09/08/18 23:43 Carbon Dioxide 25 mmol/L (22-30) 09/08/18 23:43 17 mmol/L 09/08/18 23:43 BUN 8 mg/dL (9-20) L 09/08/18 23:43 1.1 mg/dL (0.8-1.5) 09/08/18 23:43 Estimated GFR > 60 ml/min 09/08/18 23:43 7 % 09/08/18 23:43 Glucose 109 mg/dL (75-100) H 09/08/18 23:43 Calcium 9.2 mg/dL (8.4-10.2) 09/08/18 23:43 < 0.010 ng/mL (0.00-0.029) 09/08/18 23:43 - Imaging and Cardiology EKG: image reviewed (sinus rhythm, 80 bpm) Chest x-ray: report reviewed (No significant pulmonary or pleural abnormality. No pneumothorax. ), image reviewed Assessment and Plan Assessment and plan: 43-year-old -Italian male who was an ongoing smoker with history of coronary artery disease, KS (2 yrs ago), hypertension, arthritis, depression, schizoaffective disorder, and history of marijuana abuse who presents to [facility] ED with complaints of intermittent left-sided substernal chest pain with radiation to left upper extremity and neck, and shortness of breath the past 2 weeks. Acute Chest Pain -Continue supportive care -Pain management Dyspnea -CXR unremarkable -Likely secondary to acute chest pain -Monitor oxygen saturation -Albuterol when necessary -Currently on RA with O2 sat of 98% -D-Dimer pending R/O ACS -Continue telemetry monitoring -Lexiscan pending -Cardiology consult. HTN -Monitor BP -Resume home antihypertensive to optimize BP once medication reconciliation has been completed -IV hydralazine when necessary Tobacco abuse -Current every day smoker -Smokes 3-4 cigarettes per day -Counseled for cessation -Nicotine patch as needed History of KS -Patient states he was diagnosed by a defensive line coach 2 years ago History of CAD -Start ASA and statin therapy DVT PPX -on Lovenox History of marijuana abuse -UDS pending History of arthritis History of schizo effective disorder History of depression History of chronic pain (knee, back and ankle) Advance Directives: No VTE prophylaxis?: Chemical Plan of care discussed with patient/family: Yes
[2018-09-09 03:15] LABS: Chol/HDL Ratio 3.6 %
[2018-09-09 06:14] LABS: Amphetamine Screen,Urine PRESUMPTIVE NEGATIVE; Benzodiazepines Screen,Urine PRESUMPTIVE NEGATIVE; Cocaine Screen,Urine PRESUMPTIVE NEGATIVE; Methadone Screen,Urine PRESUMPTIVE NEGATIVE
[2018-09-09 06:33] LABS: Cannabinoid Screen,Urine PRESUMPTIVE POSITIVE; Opiate Screen,Urine PRESUMPTIVE POSITIVE
[2018-09-09] MEDS ORDERED: LEXISCAN IV ONE (08:44)
[2018-09-09] MEDS ORDERED: LOVENOX SUB-Q SCH (10:00)
[2018-09-09] MEDS ORDERED: HABITROL TD SCH (10:00)
[2018-09-09] MEDS ORDERED: MUCINEX ER PO SCH (10:00)
[2018-09-09] MEDS ORDERED: SODIUM CHLORIDE FLUSH SYRINGE 10 ML IV SCH (10:00)
[2018-09-09 11:14] VITALS: BP 141/78
--- NOTE | 2018-09-09 13:19 | Consultation ---
History of Present Illness Consult date: 09/09/18 Consult reason: chest pain History of present illness: 43-year-old man who presented to the emergency room with poorly characterized, atypical nonexertional chest pain. He was evaluated in the emergency room and referred for admission. Cardiac consultation was requested for chest pain. ECG done in the emergency room was in normal sinus rhythm, incomplete right bundle branch block, otherwise normal ECG, unchanged from his previous ECGs. Serial cardiac enzymes were normal. The patient's medical records continue to repeat a "history of [place]", but this is not verified, there is no history of coronary artery disease, coronary intervention or invasive coronary evaluation. What the patient has reported as a "heart attack" is an episode that he describes as a possible near syncope or syncopal event at home 2 years ago, for which he did not report to hospital but saw his doctor the next day. He was subsequently evaluated as an outpatient by a tank assembler with an echocardiogram and a stress test both of which were unre markable. Today, he underwent an exercise thallium stress test during which extends for 6 minutes of Conor protocol, there was no chest pain, no ST changes of ischemia, no significant dysrhythmias. Thallium images showed evidence of diaphragmatic attenuation artifact, otherwise no ischemia and no infarct defects. Comorbidities include chronic hypertension for which he is on amlodipine. Past History Past Medical History: arthritis, CAD, hypertension, other (depression, schizoaffective disorder, several inpatient psychiatric hospitalizations) Past Surgical History: Other (left knee surgery (90s)) Social history: Lives alone, smoking (current everyday smoker, smokes 3-4 cigarettes per day) Family history: no significant family history Medications and Allergies Allergies Allergy/AdvReac Type Severity Reaction Status Date / Time No Known Allergies Allergy Verified 08/07/17 20:56 Home Medications Medication Instructions Recorded Confirmed Last Taken Type amLODIPine [Norvasc] 5 mg PO DAILY #30 tab 04/30/17 09/09/18 Unknown Rx Active Meds: Active Medications Acetaminophen (Tylenol) 650 mg PO Q4H PRN PRN Reason: Pain MILD(1-3)/Fever >100.5/ALVARADO Albuterol (Proventil) 2.5 mg IH Q3HRT PRN PRN Reason: Shortness Of Breath Aspirin (Baby Aspirin) 81 mg PO QDAY YEE Atorvastatin Calcium (Lipitor) 40 mg PO QHS YEE Enoxaparin Sodium (Lovenox) 40 mg SUB-Q QDAY [facility] Last Admin: 09/09/18 13:07 Dose: 40 mg Documented by: Guaifenesin (Mucinex Er) 600 mg PO BID [facility] Last Admin: 09/09/18 13:07 Dose: 600 mg Documented by: Hydralazine HCl (Apresoline) 10 mg IV Q4H PRN PRN Reason: Blood Pressure Hydromorphone HCl (Dilaudid) 0.5 mg IV Q3H PRN PRN Reason: Pain , Severe (7-10) Morphine Sulfate (Morphine) 2 mg IV Q4H PRN PRN Reason: Pain, Moderate (4-6) Stop: 09/10/18 23:59 Last Admin: 09/09/18 05:05 Dose: 2 mg Documented by: Nicotine (Habitrol) 14 mg TD QDAY [facility] Last Admin: 09/09/18 13:07 Dose: 14 mg Documented by: Nitroglycerin (Nitrostat) 0.4 mg SL Q5M PRN PRN Reason: Chest Pain Ondansetron HCl (Zofran) 4 mg IV Q8H PRN PRN Reason: Nausea And Vomiting Sodium Chloride (Sodium Chloride Flush Syringe 10 Ml) 10 ml IV PRN PRN PRN Reason: LINE FLUSH Last Admin: 09/09/18 05:06 Dose: 10 ml Documented by: Sodium Chloride (Sodium Chloride Flush Syringe 10 Ml) 10 ml IV BID [facility] Last Admin: 09/09/18 13:08 Dose: 10 ml Documented by: Sodium Chloride (Sodium Chloride Flush Syringe 10 Ml) 10 ml IV PRN PRN PRN Reason: LINE FLUSH Review of Systems Cardiovascular: chest pain, no orthopnea, no palpitations, no rapid/irregular heart beat, no edema, no syncope, no lightheadedness, no shortness of breath Physical Examination Vital Signs Temp Pulse Resp BP Pulse Ox 99.4 F 87 18 120/82 96 09/08/18 23:37 09/08/18 23:37 09/08/18 23:37 09/08/18 23:37 09/08/18 23:37 General appearance: no acute distress HEENT: Positive: PERRL Neck: Positive: neck supple Cardiac: Positive: Reg Rate and Rhythm Lungs: Positive: clear to auscultation Neuro: Positive: Grossly Intact Abdomen: Positive: Soft Male genitourinary: Positive: deferred Skin: Positive: Clear Extremities: Absent: edema Results 09/08/18 23:41 09/08/18 23:43 Lipids 09/09/18 Range/Units 01:47 Triglycerides 244 H (2-149) mg/dL Cholesterol 155 (50-199) mg/dL HDL Cholesterol 43 (40-59) mg/dL Cholesterol/HDL Ratio 3.60 % CBC 09/08/18 Range/Units 23:41 WBC 5.7 (4.5-11.0) K/mm3 RBC 4.66 (3.65-5.03) M/mm3 Hgb 13.4 (11.8-15.2) gm/dl Hct 39.0 (35.5-45.6) % Plt Count 190 (140-440) K/mm3 Lymph # 2.0 (1.2-5.4) K/mm3 [place] # 0.5 (0.0-0.8) K/mm3 Eos # 0.1 (0.0-0.4) K/mm3 Baso # 0.0 (0.0-0.1) K/mm3 Comprehensive Metabolic Panel 09/08/18 Range/Units 23:43 Sodium 142 (137-145) mmol/L Potassium 3.9 (3.6-5.0) mmol/L Chloride 104.1 (98-107) mmol/L Carbon Dioxide 25 (22-30) mmol/L BUN 8 L (9-20) mg/dL Creatinine 1.1 (0.8-1.5) mg/dL Glucose 109 H (75-100) mg/dL Calcium 9.2 (8.4-10.2) mg/dL EKG interpretations - Telemetry EKG Rhythm: Sinus Rhythm Assessment and Plan - Patient Problems (1) Chest pain Current Visit: Yes Status: Acute Qualifiers: Chest pain type: unspecified Qualified Code(s): R07.9 - Chest pain, unspecified Plan to address problem: Patient's chest pain is atypical, ECG is normal, cardiac enzymes are normal and exercise thallium stress test is negative. Patient is stable for cardiac discharge.
--- NOTE | 2018-09-09 14:38 | Discharge Summary ---
Providers - Providers Date of Admission: 09/09/18 01:40 Date of discharge: 09/09/18 Attending physician: JEFF SUNG 09/09/18 01:35 Consult to Cardiology [CONS] Routine Consulting Provider: ELIAS AGUIRRE Reason For Exam: chest pain hx of NC, est pt Primary care physician: SELENA PINEDA Hospitalization Reason for admission: Acute chest pain, rule out ACS Condition: Stable Hospital course: Final discharge diagnosis: Acute Chest Pain, exact cause unknown Hypertriglyceridemia Dyspnea at rest HTN Tobacco abuse History of marijuana abuse Psychiatric disorder Hospital course: Patient was admitted and placed on chest pain pathway. Serial troponin levels done were negative. Thereafter, he had a stress test which was also reported as negative for acute ischemia. On further questioning the patient, it was determined that he never had prior history of NC. Post testing, he was monitored without any adverse events and was then deemed stable for discharge with clinic follow-up. On discharge, he was counseled on tobacco and marijuana use cessation. He was also instructed to reduce his sugar intake due to his high level of triglyceride. Disposition: - TO HOME OR SELFCARE Time spent for discharge: 35 minutes Core Measure Documentation - Palliative Care Palliative Care/ Comfort Measures: Not Applicable - Core Measures Any of the following diagnoses?: none Exam - Constitutional Vitals: Temp Pulse Resp BP Pulse Ox 97.4 F L 59 L 16 141/78 98 09/09/18 07:55 09/09/18 14:00 09/09/18 07:55 09/09/18 10:35 09/09/18 07:55 General appearance: Present: no acute distress, well-nourished - EENT Eyes: Present: PERRL, EOM intact ENT: hearing intact, clear oral mucosa - Neck Neck: Present: supple, normal ROM - Respiratory Respiratory effort: normal Respiratory: bilateral: CTA - Cardiovascular Rhythm: regular Heart Sounds: Present: S1 & S2. Absent: rub, click - Extremities Extremities: pulses symmetrical, No edema Peripheral Pulses: within normal limits - Abdominal General gastrointestinal: Present: soft, non-tender, non-distended, normal bowel sounds Male genitourinary: Present: deferred - Integumentary Integumentary: Present: clear, warm, dry - Musculoskeletal Musculoskeletal: gait normal, strength equal bilaterally - Psychiatric Psychiatric: appropriate mood/affect, intact judgment & insight - Neurologic Neurologic: CNII-XII intact, moves all extremities Plan Follow up with: [facility] [Provider Group] - 7 Days SELENA PINEDA MD [Primary Care Provider] - 7 Days
--- NOTE | 2018-09-09 22:53 | Treadmill Report ---
THALLIUM STRESS TEST LEFT VENTRICLE: Left ventricular chamber size is within normal spread. Perfusion study demonstrates a small fixed basal inferior defect, no significant reversibility on the resting study. Gated analysis demonstrates normal left ventricular systolic function, ejection fraction 61%. CONCLUSION: Small fixed basal inferior defect, consistent with diaphragmatic attenuation artifact, no reversible ischemia demonstrated, negative study. [facility]# [id number] [place]/NTS
[2018-09-10] MEDS ORDERED: BABY ASPIRIN PO SCH (10:00)
== END 2018-09-09 15:04 | disposition home or self-care (01) ==
LOC: ED 23:10 → 4A 09-09 01:40
PROVIDERS: ADMIT Internal Medicine; ATTEND Internal Medicine
DX: R07.89 Other chest pain (principal); R06.00 Dyspnea, unspecified; I10 Essential (primary) hypertension; I25.2 Old myocardial infarction; I25.10 Atherosclerotic heart disease of native coronary artery without angina pectoris; M19.90 Unspecified osteoarthritis, unspecified site; F25.9 Schizoaffective disorder, unspecified; F17.210 Nicotine dependence, cigarettes, uncomplicated
CPT/HCPCS: 36415; 71045; 78452; 80048; 80061; 80307; 84484; 85025; 85379; 93005; 93010; 93017; 96372; 96374; 99291; 99406; A9502; G0378; J1650; J2270; J2785

== ENCOUNTER 2019-02-03 00:29 | Emergency (ER) | payer MEDICARE ==
--- NOTE | 2019-02-03 02:52 | Emergency Department Report ---
Chief Complaint: Fever Stated Complaint: FEVER Time Seen by Provider: 02/03/19 02:36 - HPI History of Present Illness: Patient is a 43-year-old male with a history of between 4 months in 1 year of fevers. Patient states he feels as though his body is fi ghting off inflammation A may have parasites. Patient states he feels shaky sensation in his face and his chest. He feels as though things wiggling within his body. Patient does have a primary care physician but states he has not mentioned this to his primary care physician. Patient denies cough call congestive fevers chills nausea vomiting. - ROS Review of Systems: All other systems are reviewed and are negative - Exam Vital Signs: Vital Signs 02/03/19 00:55 Temperature 98.0 F Pulse Rate 72 Respiratory 20 Rate Blood Pressure 158/115 O2 Sat by Pulse 97 Oximetry Physical Exam: Patient is alert and oriented 3 although he does have a odd affect. Patient s eems to have delusions actively that he has parasites crawling on his skin. Skin exam is within normal limits there is no rashes present. Lungs clear to auscultation heart tones are normal. Abdomen soft and nontender. MSE screening note: Focused history and physical exam performed. Due to findings the following was ordered: ED Medical Decision Making - Medical Decision Making Patient does not appear to have a life-threatening medical emergency at this time. Patient will be referred to see his primary care physician or he can see Dr. Bar as well. Patient discharged home. ED Disposition for MSE Clinical Impression: Paresthesia Disposition: MED SCREENING EXAM-LEFT Is pt being admited?: No Does the pt Need Aspirin: No Condition: Stable Referrals: GUY DAVIS MD [Primary Care Provider] - 3-5 Days SELENA BAR MD [Staff Physician] - 3-5 Days Time of Disposition: 02:52
[2019-02-03 03:08] VITALS: BP 142/78
== END 2019-02-03 03:08 | disposition left against medical advice (07) ==
LOC: ED 00:29
DX: R20.2 Paresthesia of skin (principal)